=== PATIENT | male | born 1990 | race Asian ===

== ENCOUNTER 2020-04-12 22:03 | Emergency (ER) | payer OTHER ==
[~2020-04-12] VITALS: Ht 188 cm; Wt 113.4 kg
[2020-04-12 23:49] VITALS: BP 150/90; TEMP 98.5
== END 2020-04-12 23:49 | disposition home or self-care (01) ==
LOC: ED 22:03
PROC: 0HQFXZZ Repair Right Hand Skin, External Approach (ICD-10-PCS; principal; 2020-04-12)
PROC: 2W3JX1Z Immobilization of Right Finger using Splint (ICD-10-PCS; 2020-04-12)
DX: S61.212A Laceration without foreign body of right middle finger without damage to nail, initial encounter (principal); W25.XXXA Contact with sharp glass, initial encounter; Y92.89 Other specified places as the place of occurrence of the external cause
CPT/HCPCS: 99283; J2001